=== PATIENT | male | born 1945 | race Caucasian/White ===

== ENCOUNTER 2021-07-21 02:43 | Emergency (ER) | payer MEDICARE ==
[2021-07-21 03:09] VITALS: BP 97/63; PULSE 71; RESP 19; TEMP 98
--- NOTE | 2021-07-21 03:12 | ED ---
ENT HPI - General Chief complaint: ENT Stated complaint: Nosebleed Time Seen by Provider: 07/21/21 02:44 Source: patient, EMS, RN notes reviewed, old records reviewed Mode of arrival: EMS Limitations: no limitations - History of Present Illness Initial comments: This is a 76-year-old male to the ER for evaluation. Patient presents today for evaluation regards to nosebleed. Patient is on Coumadin. Patient has no trauma. Patient states he has had nosebleeds in the past but this is the worst. Patient states on arrival to the ER nose bleeding has stopped. Patient otherwise has no complaints. No lightheadedness dizziness or weakness MD complaint: sore throat -: hour(s) Location: nose Severity: moderate Severity scale (1-10): 7 Quality: aching Consistency: constant, now resolved Improves with: none Worsens with: none Context-Epistaxis: warfarin use Associated Symptoms: other (None) - Related Data Previous Rx's Medication Instructions Recorded Amoxicillin/Potassium Clav 1 tab PO BID 3 Days #6 tab 08/03/21 [Augmentin 875-125 Tablet] Allergies Allergy/AdvReac Type Severity Reaction Status Date / Time No Known Allergies Allergy Verified 08/03/21 19:55 Review of Systems ROS Statement: Those systems with pertinent positive or pertinent negative responses have been documented in the HPI. ROS Other: All systems not noted in ROS Statement are negative. Past Medical History Past Medical History: Atrial Fibrillation, Coronary Artery Disease (CAD), Chest Pain / Angina, Heart Failure, Hypertension, Myocardial Infarction ([place]) Additional Past Medical History / Comment(s): AAA History of Any Multi-Drug Resistant Organisms: None Reported Additional Past Surgical History / Comment(s): open heart, two stents, heart valve, brain sugery removal of tumor Past Psychological History: No Psychological Hx Reported Smoking Status: Never smoker Past Alcohol Use History: None Reported Past Drug Use History: None Reported General Exam - General Exam Comments Initial Comments: No current epistaxis General appearance: alert, in no apparent distress Head exam: Present: atraumatic, normocephalic, normal inspection Eye exam: Present: normal appearance, PERRL, EOMI. Absent: scleral icterus, conjunctival injection, periorbital swelling ENT exam: Present: normal exam, mucous membranes moist Neck exam: Present: normal inspection. Absent: tenderness, meningismus, lymphadenopathy Respiratory exam: Present: normal lung sounds bilaterally. Absent: respiratory distress, wheezes, rales, rhonchi, stridor Cardiovascular Exam: Present: regular rate, normal rhythm, normal heart sounds. Absent: systolic murmur, diastolic murmur, rubs, gallop, clicks GI/Abdominal exam: Present: soft, normal bowel sounds. Absent: distended, tenderness, guarding, rebound, rigid Extremities exam: Present: normal inspection, full ROM, normal capillary refill. Absent: tenderness, pedal edema, joint swelling, calf tenderness Back exam: Present: normal inspection Neurological exam: Present: alert, oriented X3, CN II-XII intact Psychiatric exam: Present: normal affect, normal mood Skin exam: Present: warm, dry, intact, normal color. Absent: rash Course Vital Signs 07/21/21 03:04 Temperature 98 F Pulse Rate 71 Respiratory 19 Rate Blood Pressure 97/63 O2 Sat by Pulse 99 Oximetry - Reevaluation(s) Reevaluation #1: 07/21/21 Medical record is reviewed Patient symptoms are improved here in the emergency department Patient informed results questions answered Medical Decision Making - Medical Decision Making 76 male to the emergency department with nosebleed, nosebleed results prior to arrival in the ER, patient does not want packing, will return if symptoms worsen Disposition Clinical Impression: Epistaxis Disposition: HOME SELF-CARE Condition: Good Instructions (If sedation given, give patient instructions): Nosebleed (ED) Is patient prescribed a controlled substance at d/c from ED?: No Referrals: Nonstaff,Physician [Primary Care Provider] - 1-2 days
== END 2021-07-21 03:53 | disposition home or self-care (01) ==
LOC: EC 02:43
DX: R04.0 Epistaxis (principal); I11.0 Hypertensive heart disease with heart failure; I25.2 Old myocardial infarction; I25.10 Atherosclerotic heart disease of native coronary artery without angina pectoris; I50.9 Heart failure, unspecified; I48.91 Unspecified atrial fibrillation; Z79.01 Long term (current) use of anticoagulants; Z95.5 Presence of coronary angioplasty implant and graft
CPT/HCPCS: 99283

== ENCOUNTER 2021-08-03 19:36 | Emergency (ER) | payer MEDICARE ==
[2021-08-03 19:55] VITALS: TEMP 97.8
[2021-08-03] MEDS ORDERED: LIDOCAINE/EPINEPHR/TETRACAINE 5 ML BOTTLE TOPICAL ONE (19:57)
[2021-08-03] MEDS ORDERED: OXYMETAZOLINE 0.05% NASL SPRAY 1 SPRAY BOTTLE NASAL STA (19:57)
--- NOTE | 2021-08-03 20:19 | ED ---
ENT HPI - General Chief complaint: ENT Stated complaint: Nose Bleed Time Seen by Provider: 08/03/21 19:56 Source: patient, RN notes reviewed Mode of arrival: EMS Limitations: no limitations - History of Present Illness Initial comments: Patient presents with a right sided nosebleed which has been present for the last hour. Patient has been unable to get to stop. She EMS. Denies bleeding from other sites. Patient is on warfarin for atrial fibrillation. No headache, no fever or chills, no changes in vision or hearing, no sore throat or difficulty with speech, no neck pain, no chest pain or shortness of breath, no abdominal pain, no nausea or vomiting, no changes in urination or bowel movements, no numbness or tingling, no extremity pain, no skin rashes or lesions. MD complaint: epistaxis - Related Data Previous Rx's Medication Instructions Recorded Amoxicillin/Potassium Clav 1 tab PO BID 3 Days #6 tab 08/03/21 [Augmentin 875-125 Tablet] Allergies Allergy/AdvReac Type Severity Reaction Status Date / Time No Known Allergies Allergy Verified 08/03/21 19:55 Review of Systems ROS Statement: Those systems with pertinent positive or pertinent negative responses have been documented in the HPI. ROS Other: All systems not noted in ROS Statement are negative. Past Medical History Past Medical History: Atrial Fibrillation, Coronary Artery Disease (CAD), Chest Pain / Angina, Heart Failure, Hypertension, Myocardial Infarction ([place]) Additional Past Medical History / Comment(s): AAA History of Any Multi-Drug Resistant Organisms: None Reported Additional Past Surgical History / Comment(s): open heart, two stents, heart claudia ve, brain sugery removal of tumor Past Psychological History: No Psychological Hx Reported Smoking Status: Never smoker Past Alcohol Use History: None Reported Past Drug Use History: None Reported General Exam - General Exam Comments Initial Comments: Patient presents with active nosebleed. Does not appear to be ill or toxic othe rwise. Vital signs reviewed Limitations: no limitations General appearance: alert, in distress Head exam: Present: atraumatic, normocephalic, normal inspection Eye exam: Present: normal appearance, PERRL, EOMI. Absent: scleral icterus, conjunctival injection, periorbital swelling ENT exam: Present: normal exam, normal oropharynx, mucous membranes moist, other (Clots noted in the posterior pharynx. Extensive nosebleed from the right naris.) Neck exam: Present: normal inspection. Absent: tenderness, meningismus, lymphadenopathy Respiratory exam: Present: normal lung sounds bilaterally. Absent: respiratory distress, wheezes, rales, rhonchi, stridor Cardiovascular Exam: Present: regular rate, normal rhythm, normal heart sounds. Absent: systolic murmur, diastolic murmur, rubs, gallop, clicks GI/Abdominal exam: Present: soft, normal bowel sounds. Absent: distended, tenderness, guarding, rebound, rigid Extremities exam: Present: normal inspection, full ROM, normal capillary refill. Absent: tenderness, pedal edema, joint swelling, calf tenderness Back exam: Present: normal inspection Neurological exam: Present: alert, oriented X3, CN II-XII intact Psychiatric exam: Present: normal affect, normal mood Skin exam: Present: warm, dry, intact, normal color. Absent: rash Course Vital Signs 08/03/21 19:53 Temperature 97.8 F Pulse Rate 81 Respiratory 18 Rate Blood Pressure 113/75 O2 Sat by Pulse 98 Oximetry Procedures - Procedures Initial comment: Nosebleed was assessed. Rapid Rhino, posterior, was used to pack the right nostril. Patient tolerated well. Patient did well with the posterior Rhino Rocket. There was no wheezing. Patient was observed for approximately one hour after packing and had no bleeding. Mild anemia with an INR 3.5. Afrin nasal spray was instilled into the left nostril Medical Decision Making - Medical Decision Making Right-sided nosebleed, patient on warfarin. Patient's hemodynamics are stable. No bleeding from other sites. Packed with a posterior rapid Rhino We are going to hold the next 2 doses of warfarin, starting today. Patient to call his burling and joining supervisor who works out of [facility]. Patient also instructed to contact his regular physician regarding his renal function. His regular doctors in [facility]. Dr. Cordon. Patient was given follow-up with your nose and throat. Patient counseled on removal instructions. Patient had mild anemia but was hemodynamically stable. No bleeding from other sites. The case was discussed in detail with ED attending physician. Presentation, findings, treatment plan discussed in detail. Patient was told to return to the ER for any signs or symptoms worsen. Told to return immediately if any other problems arise. All questions answered. Treatment plan discussed. Patient in agreement Every effort has been made to ensure accuracy of this dictation. However, due to the limitations of electronic medical records and dictation devices, errors in charting still occur. - Lab Data Result diagrams: 08/03/21 20:08 08/03/21 20:08 Lab Results 08/03/21 08/03/21 08/03/21 Range/Units 20:08 20:08 20:08 WBC 9.5 (3.8-10.6) k/uL RBC 3.69 L (4.30-5.90) m/uL Hgb 11.6 L (13.0-17.5) gm/dL Hct 35.1 L (39.0-53.0) % MCV 95.1 (80.0-100.0) fL MCH 31.4 (25.0-35.0) pg MCHC 33.0 (31.0-37.0) g/dL RDW 15.5 (11.5-15.5) % Plt Count 227 (150-450) k/uL MPV 8.0 Hypochromasia Slight PT 35.1 H (9.0-12.0) sec INR 3.5 H (<1.2) Sodium 136 L (137-145) mmol/L Potassium 3.8 (3.5-5.1) mmol/L Chloride 98 (98-107) mmol/L Carbon Dioxide 29 (22-30) mmol/L Anion Gap 9 mmol/L BUN 29 H (9-20) mg/dL Creatinine 1.65 H (0.66-1.25) mg/dL Est GFR (CKD-EPI)AfAm 46 (>60 ml/min/1.73 sqM) Est GFR (CKD-EPI)NonAf 40 (>60 ml/min/1.73 sqM) Glucose 147 H (74-99) mg/dL Calcium 8.7 (8.4-10.2) mg/dL Disposition Clinical Impression: Epistaxis, Warfarin-induced coagulopathy, Renal insufficiency Disposition: HOME SELF-CARE Condition: Stable Instructions (If sedation given, give patient instructions): Nosebleed (ED) Additional Instructions: Use the nasal spray, 2 sprays to the left nostril every 12 hours for 3 days. Call your burling and joining supervisor tomorrow for further guidance on warfarin dosing. Your INR was 3.5 here today. Hold today's dose and mild dose unless otherwise instructed by your burling and joining supervisor. Follow-up with the ear nose and throat doctor or your regular doctor on Monday for packing removal. Alternatively, he can return here to the emergency department if needed. Take the antibiotics as directed. Your kidney function was not optimal. This will also need to be monitored by your regular doctor. Call the ear nose and throat doctor at 8 AM tomorrow morning to set up an appointment for Monday Follow-up with your regular physician as directed. Return to the ER immediately if any symptoms worsen, new symptoms arise, or any other problems develop. Prescriptions: Amoxicillin/Potassium Clav [Augmentin 875-125 Tablet] 1 tab PO BID 3 Days #6 tab Is patient prescribed a controlled substance at d/c from ED?: No Referrals: Slick Gee MD [STAFF PHYSICIAN] - 08/06/21 Time of Disposition: 21:04
[2021-08-03 20:24] LABS: HCT 35.1 % (39.0-53.0); HGB 11.6 gm/dL (13.0-17.5); Hypochromasia Slight; MCH 31.4 pg (25.0-35.0); MCV 95.1 fL (80.0-100.0); Platelet Count 227 k/uL (150-450); RBC 3.69 m/uL (4.30-5.90); RDW 15.5 % (11.5-15.5); WBC 9.5 k/uL (3.8-10.6)
[2021-08-03 20:33] LABS: Calcium 8.7 mg/dL (8.4-10.2); Potassium 3.8 mmol/L (3.5-5.1)
[2021-08-03 20:38] LABS: INR 3.5 (<1.2); Prothrombin Time 35.1 sec (9.0-12.0)
[2021-08-03 22:31] VITALS: BP 100/65; PULSE 53; RESP 16
== END 2021-08-03 22:28 | disposition home or self-care (01) ==
LOC: EC 19:36
DX: R04.0 Epistaxis (principal); D68.32 Hemorrhagic disorder due to extrinsic circulating anticoagulants; N28.9 Disorder of kidney and ureter, unspecified; I48.91 Unspecified atrial fibrillation; I25.10 Atherosclerotic heart disease of native coronary artery without angina pectoris; I11.0 Hypertensive heart disease with heart failure; I50.9 Heart failure, unspecified; I25.2 Old myocardial infarction
CPT/HCPCS: 30905; 36415; 80048; 85027; 85610; 86850; 86900; 86901; 99283